=== PATIENT | male | born 1990 | race Caucasian/White ===

== ENCOUNTER 2018-09-03 08:40 | Emergency (ER) | payer SELFPAY ==
[~2018-09-03] VITALS: Ht 190.5 cm; Wt 70.0 kg
[2018-09-03 08:43] VITALS: BP 134/79; PULSE 100; RESP 16; Ht 190.5 cm; Wt 70.0 kg
[2018-09-03] MEDS ORDERED: IBUPROFEN 800 MG TAB PO ONE (09:00)
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
== END 2018-09-03 09:53 | disposition left against medical advice (07) ==
LOC: FTE 08:40
DX: S80.212A Abrasion, left knee, initial encounter (principal); S90.412A Abrasion, left great toe, initial encounter; V09.29XA Pedestrian injured in traffic accident involving other motor vehicles, initial encounter
CPT/HCPCS: 73562; 73660